=== PATIENT | male | born 1990 | race Caucasian/White ===

== ENCOUNTER 2021-06-24 16:40 | Inpatient (IN) | payer OTHER ==
[~2021-06-24] VITALS: Ht 170.2 cm; Wt 63.5 kg
[2021-06-24 17:20] LABS: HEMOGLOBIN 13.9 gm/dl (14.0-17.5); RED BLOOD COUNT 4.54 M/UL (4.20-5.50)
[2021-06-24 17:25] LABS: BORDETELLA PARAPERTUSSIS Not Detected (Not Detectd); BORDETELLA PERTUSSIS Not Detected (Not Detectd); CHLAMYDIA PNEUMONIAE Not Detected (Not Detectd); CORONAVIRUS HKU1 Not Detected (Not Detectd); CORONAVIRUS NL63 Not Detected (Not Detectd); CORONAVIRUS OC43 Not Detected (Not Detectd); CORONOAVIRUS 229E Not Detected (Not Detectd); HUMAN METAPNEUMOVIRUS Not Detected (Not Detectd); HUMAN RHINOVIRUS/ENTEROVIRUS Not Detected (Not Detectd); INFLUENZA A Not Detected (Not Detectd); INFLUENZA B Not Detected (Not Detectd); MYCOPLASMA PNEUMONIAE Not Detected (Not Detectd); PARAINFLUENZA VIRUS 1 Not Detected (Not Detectd); PARAINFLUENZA VIRUS 2 Not Detected (Not Detectd); PARAINFLUENZA VIRUS 3 Not Detected (Not Detectd); PARAINFLUENZA VIRUS 4 Not Detected (Not Detectd); RESPIRATORY SYNCYTIAL VIRUS Not Detected (Not Detectd)
[2021-06-24 18:36] LABS: SARS-CoV-2 NOT DETECTED (Not Detectd)
[2021-06-24 21:00] LABS: BUN/CREATININE RATIO 10 (0-10)
[2021-06-25 03:36] LABS: HEMOGLOBIN 14.2 gm/dl (14.0-17.5); RED BLOOD COUNT 4.68 M/UL (4.20-5.50); WHITE BLOOD COUNT 9.9 K/UL (4.5-11.0)
[2021-06-25 04:06] LABS: BUN/CREATININE RATIO 17 (0-10)
[2021-06-27 08:13] LABS: HBSAG SCREEN Negative (Negative); HEP A AB, IGM Negative (Negative); HEP B CORE AB, IGM Negative (Negative); HEP B CORE AB, TOT Positive (Negative); HEP C VIRUS AB >11.0 (0.0-0.9); HIV SCREEN 4TH GENERATION WRFX Non Reactive (Non Reactive)
== END 2021-06-25 16:48 | disposition left against medical advice (07) | DRG 871 ==
LOC: ER1 16:40 → CDU 20:23
PROVIDERS: Nurse Practitioner; Physician Assistant; ADMIT Internal Medicine
DX: A41.9 Sepsis, unspecified organism (principal); J18.9 Pneumonia, unspecified organism; J69.0 Pneumonitis due to inhalation of food and vomit; F11.20 Opioid dependence, uncomplicated; E87.1 Hypo-osmolality and hyponatremia; Z20.822 Contact with and (suspected) exposure to COVID-19; E87.6 Hypokalemia; F10.10 Alcohol abuse, uncomplicated; E88.09 Other disorders of plasma-protein metabolism, not elsewhere classified; F17.210 Nicotine dependence, cigarettes, uncomplicated; Z96.652 Presence of left artificial knee joint; Z88.8 Allergy status to other drugs, medicaments and biological substances; Z80.1 Family history of malignant neoplasm of trachea, bronchus and lung
CPT/HCPCS: 36600; 71260; 80048; 80053; 80074; 81001; 82550; 82553; 82728; 82803; 83605; 83615; 83874; 84484; 85025; 85379; 85610; 85652; 85730; 86140; 86704; 86706; 86708; 86803; 87015; 87040; 87070; 87116; 87205; 87340; 87389; 87633; 93005; 94664; 96374; 96375; 99285; J0696; J1100; J2543; J3370; J3411; J3475; J3480; J7030; J7070; Q9967